=== PATIENT | female | born 2000 | race Two or more races ===

== ENCOUNTER 2025-05-02 21:53 | Observation (INO) | payer MEDICAID, OTHER ==
[~2025-05-02] VITALS: Ht 160 cm; Wt 71.7 kg
[2025-05-02 23:10] LABS: Urine Amorphous Crystal FEW /hpf (None Seen); Urine Protein, UAD Negative (Negative)
[2025-05-02 23:30] LABS: Amphetamine Screen, Urine Neg (NEGATIVE); Barbiturate Scree,Urine Neg (NEGATIVE); Benzodiazephine Screen, Urine Neg (NEGATIVE); Cannabinoid Screen, Urine Neg (NEGATIVE); Cocaine Screen, Urine Neg (NEGATIVE); Opiate Scree,Urine Neg (NEGATIVE); Phencyclidine Screen, Urine Neg (NEGATIVE)
[2025-05-03] MEDS: ACETAMINOPHEN IV 1000 MG/100ML (10MG/ML) IV STA (00:30)
[2025-05-03 01:01] LABS: Vaginal Bacteria Moderate; Vaginal Clue Cells Rare; Vaginal Epithelial Cells Many; Vaginal Trichomonas Not Present
[2025-05-03] MEDS ORDERED: NITR-87 PO (01:35)
[2025-05-03] MEDS ORDERED: PREN1TAB71 PO (01:36)
--- NOTE | 2025-05-03 02:09 | DVHDS2 ---
Physician Discharge Progress N Final Diagnosis: IUP @ 29w 5d Contractions - resolved UTI Operations or Procedures: Operations or Procedures S: 24yo G3,[address] for cramping and back pain. She reports normal movements, no UCs, no leakage of fluid, vaginal bleeding, JONES, vision changes or epigastric pain States she has been in other hospitals twice this month with same problem and was just been told it is normal with O: A&O x3 NAD. Afebrile, VSS Respiration: unlabored heart and lung sounds normal. Abdomen: Gravid, non-tender to palpation Extremities: No edema EFM FHR baseline 135bpm, mod variability, Accelerations present, no deceleration Contractions noted: Patient going to void about every 10min CVA tenderness present bilaterally SSE: white discharge Wet mount: neg except for rare clue cells A: IUP at 29w 4d Contractions UTI symptoms P: IV hydration Acetaminophen 1G IV Rocephin 1G IVPB Re-assessment Patient reports no more cramping or pain A: IUP at 29w 4d Contractions - resolved UTI symptoms P: Discharge home on Macrobid 100mg PO every 12 hrs x 7days Advised to increase water intake, practice good perineal, urinary and voiding hygiene Schedule OB follow appointment with OB provider immediately 3rd trimester emergency S&S FMC, PTL & pre-eclampsia precautions reviewed with pt; advised to seek health care if any symptom including but not limited to any of the above. Condition on Discharge: Good Disposition: Home Discharge Instructions: Diet: Regular Activity: No Restrictions, As Tolerated Medications: none Follow Up Care: Discharge Statement: 3rd trimester emergency S&S FMC, PTL & pre-eclampsia precautions reviewed with pt; advised to seek health care if any symptom including but not limited to any of the above. "Patient was advised to return to the ER or call 911 if any headaches, d izziness, shortness of breath, chest pain, abdominal pain, bleeding, fevers, or worsening of medical condition. Patient was counseled about treatment plan, medications, possible side effects, patientverbalized understanding. All questions were answered to the best of my ability. This discharge took greater then 30 minutes in planning, reviewing documentation, counseling the patient, and discussing with other team members." Visit Coding OBGYN Date of Service: May 03, 2025 Billing Provider: NNEKA BABIN CNM HISTOLOGIC TECHNICIAN Common Visit Codes: 32584-DGS/OBS SAME DATE (HIGH) HISTOLOGIC TECHNICIAN Procedure Codes: 15135-84- NON-STRESS TEST NNEKA BABIN CNM May 03, 2025 02:09
== END 2025-05-03 02:28 | disposition home or self-care (01) ==
LOC: LDRP 21:53
PROVIDERS: ADMIT Obstetrics & Gynecology; ATTEND Obstetrics & Gynecology
DX: O60.03 Preterm labor without delivery, third trimester (principal); O23.43 Unspecified infection of urinary tract in pregnancy, third trimester; N39.0 Urinary tract infection, site not specified; O99.891 Other specified diseases and conditions complicating pregnancy; M54.9 Dorsalgia, unspecified; Z3A.29 29 weeks gestation of pregnancy; Z79.899 Other long term (current) drug therapy; Z98.890 Other specified postprocedural states
CPT/HCPCS: 59025; 80307; 81001; 87210; 94760; 94762; 96360; 96361; G0378; J0696; J7030; J0131

== ENCOUNTER 2025-06-20 11:15 | Observation (INO) | payer MEDICAID ==
[~2025-06-20 11:15] MED LIST: NITR-87 PO; PREN1TAB71 PO
--- NOTE | 2025-06-20 12:42 | DVHDS2 ---
Physician Discharge Progress N Final Diagnosis: cramping 37wks labor check Operations or Procedures: Operations or Procedures nst reactive reviwed Condition on Discharge: Good Disposition: Home Discharge Instructions: Diet: Regular Activity: No Restrictions, As Tolerated Follow Up/Referral: as scheduled Medications: na Follow Up Care: Specialist: 1w Discharge Statement: "Patient was advised to return to the ER or call 911 if any headaches, dizziness, shortness of breath, chest pain, abdominal pain, bleeding, fevers, or worsening of medical condition. Patient was counseled about treatment plan, medications, possible side effects, patientverbalized understanding. All questions were answered to the best of my ability. This discharge took greater then 30 minutes in planning, reviewing documentation, counseling the patient, and discussing with other team members." Visit Coding OBGYN Date of Service: Jun 20, 2025 Billing Provider: RUDY MARCUS DO EYEWEAR MANUFACTURING SUPERVISOR Common Visit Codes: 35953-CMVCFZV OBS CARE (HIGH) EYEWEAR MANUFACTURING SUPERVISOR Procedure Codes: 71408-11- NON-STRESS TEST RUDY MARCUS DO Jun 20, 2025 12:42
== END 2025-06-20 12:48 | disposition home or self-care (01) ==
LOC: UNDOADMOB 11:15 → LDRP 11:15 → UNDODISOB 12:48
PROVIDERS: ADMIT Obstetrics & Gynecology; ATTEND Obstetrics & Gynecology
DX: O26.893 Other specified pregnancy related conditions, third trimester (principal); R25.2 Cramp and spasm; Z3A.37 37 weeks gestation of pregnancy; Z98.890 Other specified postprocedural states
CPT/HCPCS: 59025; 81002; 84112; 87081; 94760; G0378

== ENCOUNTER 2025-06-29 16:22 | Observation (INO) | payer MEDICAID ==
[2025-06-29 17:03] LABS: Hematocrit 30.3 % (36.0-46.0); Hemoglobin 9.5 g/dL (12.2-16.2); Mean Corpuscular Hemoglobin 22.5 pg (28.0-32.0); Mean Corpuscular Volume 71.5 fL (80.0-100.0); Nucleated Red Blood Cells % 0.0 %
[2025-06-29 17:19] LABS: Protein, Urine 56.3 mg/dL (1-14)
[2025-06-29 17:21] LABS: INR 0.96 (0.9-1.15); Partial Thromboplastin Time 26.8 SEC (24.5-34.5); Prothrombin Time 10.2 sec (9.3-11.8)
[2025-06-29 17:23] LABS: Alanine Aminotransferase 11 U/L (7-40); Albumin 3.7 g/dL (3.2-4.8); Anion Gap 10 (5-15); BUN/Creatinine Ratio 12.3 (10.0-20.0); Carbon Dioxide 22 mmol/L (20-31); Potassium 4.0 mmol/L (3.5-5.1); Sodium 141 mmol/L (136-145); Total Protein 6.1 g/dL (5.7-8.2)
[2025-06-29 17:38] LABS: Urine Protein, UAD TRACE (Negative)
[2025-06-29 17:39] LABS: Alkaline Phosphatase 130 U/L (46-116); Bilirubin, Total 0.2 mg/dL (0.2-1.0); Blood Urea Nitrogen 7 mg/dL (9-23); Calcium 8.7 mg/dL (8.7-10.4); Chloride 109 mmol/L (98-107); Glucose 111 mg/dL (74-106)
[2025-06-29 17:51] LABS: Uric Acid 3.3 mg/dL (3.1-7.8)
--- NOTE | 2025-06-29 20:34 | DVHDS2 ---
Physician Discharge Progress N Final Diagnosis: Term , not in labor Secondary Diagnosis: Isolated proteinuria, no evidence of pre-eclampsia Operations or Procedures: Operations or Procedures NST/BPP/ESDRAS PIH labs All reviewed Condition on Discharge: Stable Disposition: Home Discharge Instructions: Diet: Regular Activity: No Restrictions, As Tolerated Follow Up/Referral: F/U w/ Primary OB (Outside MD). Labor precautions. PIH precautions Medications: NA Follow Up Care: Discharge Statement: "Patient was advised to return to the ER or call 911 if any headaches, dizziness, shortness of breath, chest pain, abdominal pain, bleeding, fevers, or worsening of medical condition. Patient was counseled about treatment plan, medications, possible side effects, patientverbalized understanding. All questions were answered to the best of my ability. This discharge took greater then 30 minutes in planning, reviewing documentation, counseling the patient, and discussing with other team members." Visit Coding OBGYN Date of Service: Jun 29, 2025 Billing Provider: ANDREA GOVEA DO CARPENTER ROUGH Common Visit Codes: 03415-RFQ/OBS SAME DATE (HIGH) CARPENTER ROUGH Procedure Codes: 62796-86- NON-STRESS TEST ANDREA GOVEA DO Jun 29, 2025 20:34
== END 2025-06-29 18:47 | disposition home or self-care (01) ==
LOC: LDRP 16:22
PROVIDERS: ADMIT Obstetrics & Gynecology; ATTEND Obstetrics & Gynecology
DX: O12.13 Gestational proteinuria, third trimester (principal); O48.0 Post-term pregnancy; R10.20 Pelvic and perineal pain unspecified side; Z3A.37 37 weeks gestation of pregnancy; Z98.890 Other specified postprocedural states; Z79.899 Other long term (current) drug therapy
CPT/HCPCS: 36415; 59025; 80053; 81001; 81002; 82570; 84156; 84550; 85025; 85610; 85730; 94760; G0378

== ENCOUNTER 2025-07-03 14:55 | Observation (INO) | payer MEDICAID ==
--- NOTE | 2025-07-04 09:47 | DVHDS2 ---
Physician Discharge Progress N Final Diagnosis: labor check 38wks Operations or Procedures: Operations or Procedures nst reactive reviwed,sono Condition on Discharge: Good Disposition: Home Discharge Instructions: Diet: Regular Activity: No Restrictions, As Tolerated Medications: na Follow Up Care: Specialist: 2d Discharge Statement: "Patient was advised to return to the ER or call 911 if any headaches, dizziness, shortness of breath, chest pain, abdominal pain, bleeding, fevers, or worsening of medical condition. Patient was counseled about treatment plan, medications, possible side effects, patientverbalized understanding. All questions were answered to the best of my ability. This discharge took greater then 30 minutes in planning, reviewing do cumentation, counseling the patient, and discussing with other team members." Visit Coding OBGYN Date of Service: Jul 03, 2025 Billing Provider: RUDY MARCUS DO RVDA MASTER CERTIFIED RV TECHNICIAN Common Visit Codes: 49674-CIZNUSY OBS CARE (HIGH) RVDA MASTER CERTIFIED RV TECHNICIAN Procedure Codes: 97719-41- NON-STRESS TEST RUDY MARCUS DO Jul 04, 2025 09:47
== END 2025-07-03 16:20 | disposition home or self-care (01) ==
LOC: INTOOBSV 14:55 → LDRP 14:55
PROVIDERS: ADMIT Obstetrics & Gynecology; ATTEND Obstetrics & Gynecology
DX: O62.9 Abnormality of forces of labor, unspecified (principal); Z3A.38 38 weeks gestation of pregnancy; Z79.899 Other long term (current) drug therapy; Z98.890 Other specified postprocedural states
CPT/HCPCS: 59025; 81002; 94760; G0378

== ENCOUNTER 2025-07-10 09:35 | Emergency (ER) | payer MEDICAID ==
[~2025-07-10] VITALS: Ht 170.2 cm; Wt 82.0 kg
[2025-07-10 10:00] VITALS: PULSE 64; RESP 16; O2SAT 98
[2025-07-10] MEDS: MORPHINE SULFATE 4 MG/ML SYR/VIAL IV ONE (10:15)
[2025-07-10] MEDS: LABETALOL HCL 20 MG/4 ML VL IV ONE (10:15)
--- NOTE | 2025-07-10 10:23 | ED.PDOC ---
HUMAN PERFORMANCE PROFESSOR HPI Comments This is a 24 year old female presenting to the ED with chief complaint of post hypertension. Patient reports that she had delivered her daughter 2 days ago in [facility] where she has now been experiencing a crushing headache worsening over time. Patient relays that she has been noted to have a high BP with a systolic BP in the 150s. Patient states that she had an epidural placed for delivery, however, it needed to be fixed due to malfunctioning. Patient notes she was previously diagnosed with preeclampsia and gestational hypertension. Patient denies any N/V, dizziness, syncope, abdominal pain, chest pain, or SOB. Chief Complaint: High Blood Pressure Time Seen by MD: 10:23 Reviewed Notes: Nurses Notes, Medications, Allergies Allergies: Coded Allergies: NO KNOWN ALLERGIES (Unverified , 05/02/25) Home Meds Reported Medications Vit W/ Ferrous Fumara (PNV PLUS MULTIVI) Plus Tab, 1 TAB PO DAILY, TAB 05/03/25 Nitrofurantoin Monohydrate Mac (Macrobid) 100 Mg Cap, 100 MG PO BID for 7 Days, CAP 05/03/25 Information Source: Patient Mode of Arrival: Ambulatory Timing: Days Prehospital treatment: None Severity: Moderate Past Medical History PAST MEDICAL HISTORY: Denies Surgical History: Denies all surgeries FIXED INCOME MANAGER History: No Pertinent FIXED INCOME MANAGER History Family History Family History: Reviewed,noncontributory to illness Social History Smoker: Non-Smoker Alcohol: Denies ETOH Use Drugs: Denies Drug Use Lives In: Home Constitutional: denies: chills, diaphoresis, fatigue, fever, malaise, sweats, weakness, others EENTM: denies: blurred vision, double vision, ear bleeding, ear discharge, ear drainage, ear pain, ear ringing, eye pain, eye redness, hearing loss, mouth pain, mouth swelling, nasal discharge, nose bleeding, nose congestion, nose pain, photophobia, tearing, throat pain, throat swelling, voice changes, others Respiratory: denies: cough, hemoptysis, orthopnea, SOB at rest, shortness of breath, SOB with excertion, stridor, wheezing, others Cardiovascular: denies: chest pain, dizzy spells, diaphoresis, Dyspnea on exertion, edema, irregular heart beat, left arm pain, lightheadedness, palpitations, PND, syncope, others Gastrointestinal: denies: abdomen distended, abdominal pain, blood streaked bowels, constipated, diarrhea, dysphagia, difficulty swallowing, hematemesis, melena, nausea, poor appetite, poor fluid intake, rectal bleeding, rectal pain, vomiting, others Genitourinary: denies: abnormal vagina bleeding, burning, dyspareunia, dysuria, flank pain, frequency, hematuria, incontinence, pain, , vagina discharge, urgency, others Neurological: reports: headache; denies: dizziness, fainting, left sided numbness, left sided weakness, numbness, paresthesia, pre-existing deficit, right sided numbness, right sided weakness, seizure, speech problems, tingling, tremors, weakness, others Musculoskeletal: denies: back pain, gout, joint pain, joint swelling, muscle pain, muscle stiffness, neck pain, others Integumetry: denies: bruises, change in color, change in hair/nails, dryness, laceration, lesions, lumps, rash, wounds, others Allergic/Immunocompromised: denies: Difficulty Healing, Frequent Infections, Hives, Itching, others Hematologic/Lymphatic: denies: anemia, blood clots, easy bleeding, easy bruising, swollen glands, others Endocrine: denies: excessive hunger, excessive sweating, excessive thirst, excessive urination, flushing, intolerance to cold, intolerance to heat, unexplained weight gain, unexplained weight loss, others Psychiatric: denies: anxiety, bipolar disorder, depression, hopeless, panic disorder, schizophrenia, sleepless, suicidal, others All Other Systems: Reviewed and Negative Physical Exam General Appearance: Moderate Distress, Normal HEENT: Normal ENT Inspection, Pharynx Normal, TMs Normal Neck: Full Range of Motion, Non-Tender, Normal, Normal Inspection Respiratory: Chest Non-Tender, Lungs Clear, No Accessory Muscle Use, No Res piratory Distress, Normal Breath Sounds Cardiovascular: No Edema, No JVD, No Murmur, No Gallop, Normal Peripheral Pulses, Regular Rate/Rhythm Breast Exam: Deferred Gastrointestinal: No Organomegaly, Non Tender, No Pulsatile Mass, Normal Bowel Sounds, Soft Genitalia: Deferred Pelvic: Deferred Rectal: Deferred Extremities: No calf tenderness, Normal capillary refill, Normal inspection, Normal range of motion, Non-tender, No pedal edema Musculoskeletal : Apperance: Normal Neurologic: Alert, sales and service specialist II-XII nml as Tested, No Motor Deficits, Normal Affect, Normal Mood, No Sensory Deficits Cerebellar Function: Normal Reflexes: Normal Skin: Dry, Normal Color, Warm Peripheral Pulses: 3+ Radial (R), 3+ Radial (L) Lymphatic: No Adenopathy Was a procedure done? Was a procedure done?: No Differential Diagnosis (FIXED INCOME MANAGER) Vaginal Bleeding: Hormonal, UTI X-Ray, Labs, Meds, VS Vital Signs Date Time Temp Pulse Resp B/P (MAP) Pulse Ox O2 Delivery O2 Flow Rate FiO2 07/10/25 11:57 97.7 70 18 133/83 (100) 98 97.7 07/10/25 11:45 83 18 133/83 07/10/25 10:00 64 16 98 Room Air* 0 21 07/10/25 10:00 97.7 64 16 126/79 (95) 98 97.7 07/10/25 09:37 97.4 83 18 153/104 18 97.4 Lab Test 07/10/25 11:05 Range/Units Urine Color Colorless Yellow Urine Clarity Clear Clear Urine pH 6.5 5.0-9.0 Urine Specific [place] 1.009 1.001-1.035 Urine Protein Trace H Negative Urine Ketones Negative Negative Urine Blood 3+ H Negative /uL Urine Nitrite Negative Negative Urine Bilirubin Negative Negative Urine Urobilinogen Normal Negative mg/dL Urine Leukocyte Esterase 1+ Negative /uL Urine RBC 504 0 - 4 /hpf Urine Microscopic WBC 23 H 0-5 /HPF Urine Squamous Epithelial Cells Few <5 /hpf Urine Bacteria None seen None Seen /hpf Urine Mucus Few None Seen Urine Glucose Normal Normal mg/dL Current Medications Medications (Trade) Dose Ordered Sig/Daniela Route Start Time Stop Time Status Last Admin Ondansetron HCl (Zofran) 4 mg ONCE ONCE IV 07/10/25 10:15 07/10/25 10:16 DC 07/10/25 11:45 Hydromorphone HCl (Dilaudid Injection) 1 mg ONCE ONCE IV 07/10/25 11:15 07/10/25 11:16 DC 07/10/25 11:45 Patient alert. Came in because of high blood pressure. Vitals stable. Answering questions. CT of the head reviewed does not show any acute changes. Moving all extremities. No leg swelling. No shortness a breath. UA shows UTI. Was given prescription of Keflex antibiotic. She was told to come back if the headache does not resolve possibly for a e pidural patch. Explained to the patient. Was told to follow up with her primary care physician. Was told to come back if there is any problem. [address] [address] Ph: [phone] DIAGNOSTIC IMAGING Diagnostic Imaging Report : [id number] Signed PATIENT: RADHA ABAD ACCT: [id number] UNIT: [id number] : 2000 LOC: ER ROOM / BED: / AGE / SEX: 24 / F ADM STATUS: REG ER SERVICE 1009 ORDERING PHYSICIAN: PERICO OTTO MD PROCEDURE(s): HWOCT - HEAD WITHOUT CONTRAST REASON: headache ORDER NUMBER(s): [id number], ACCESSION NUMBER(s): [id number] EXAM: CT HEAD WITHOUT CONTRAST INDICATION: headache TECHNIQUE: CT of the head without intravenous contrast. Coronal and sagittal reformatted images are submitted. Radiation Dose : 1. Head: CT Dose: CTDI volume is 51.25 mGy. Dose-length product is 820.05 mGy*cm The dose indicators for CT are the volume Computed Tomography (CT) Dose Index (CTDIvol) and the Dose Length Product (DLP), and are measured in units of mGy and mGy-cm, respectively. These indicators are not patient dose, but values generated from the CT scanner acquisition factors. The report includes radiation exposure data for exposures received during this examination. All CT scans at this medical facility are performed using dose modulation techniques as appropriate to a performed exam including the following: Automated exposure control was utilized; adjustment of the MA and/or KV according to patient size; and use of iterative reconstruction technique. COMPARISON: None FINDINGS: There is no evidence of acute intracranial hemorrhage, extra-axial collection, mass effect, midline shift, herniation or hydrocephalus. There is air in the frontal horns of the lateral ventricles. The ventricles, sulci and cisterns are age appropriate. The carrillo-white differentiation is intact. There is mucosal thickening in the sphenoid sinus. No depressed calvarial fracture. The surrounding soft tissues are unremarkable. IMPRESSION: 1. No evidence of acute intracranial abnormality. 2. Air in the frontal horns of the normal caliber lateral ventricles in the absence of any skull fracture. Please correlate with any recent medical intervention such as lumbar puncture or other neurological procedure or trauma. ATED BY: ZOYA SALCEDO MD DICTATED DATE/TIME: 07/10/251103 SIGNED BY: ZOYA SALCEDO MD SIGNED DATE/TIME: 07/10/251103 CC: Images Reviewed?: Images reviewed and evaluated by me Time of 1ST Reevaluation: 11:22 Reevaluation 1ST: Unchanged Patient Education/Counseling: Diagnosis, Treatment Family Education/Counseling: No Family Present Departure 1 Departure Time of Disposition: 10:41 Impression: Primary Impression: Hypertensive urgency Additional Impression: UTI (urinary tract infection) Qualified Codes: N30.01 - Acute cystitis with hematuria Disposition: HOME / SELF CARE / HOMELESS Condition: Good e-Prescriptions Cephalexin (KEFLEX CAPSULE) 250 Mg Cp 500 MG PO QID for 5 Days, #20 BOTTLE Prov: PERICO OTTO MD 07/10/25 Discharged With: Self Critical Care Note Critical Care Time?: Yes (90 min-critical care time only) Stability Stability form required: No Heart Score Heart Score: Heart Score Response (Comments) Value History N/A 0 EKG N/A 0 Age N/A 0 Risk Factors N/A 0 Troponin N/A 0 Total 0 I personally scribed for PERICO OTTO MD ([email or web address]) on 07/10/25 at 10:23. Electronically submitted by Demarcus Montague ([email or web address]). I personally scribed for PERICO OTTO MD ([email or web address]) on 07/10/25 at 11:14. Electronically submitted by Dmearcus Montague ([email or web address]). PERICO OTTO MD Jul 10, 2025 10:23
--- NOTE | 2025-07-10 11:07 | DVH ---
EXAM: CT HEAD WITHOUT CONTRAST INDICATION: headache TECHNIQUE: CT of the head without intravenous contrast. Coronal and sagittal reformatted images are s ubmitted. Radiation Dose : 1. Head: CT Dose: CTDI volume is 51.25 mGy. Dose-length product is 820.05 mGy*cm The dose indicators for CT are the volume Computed Tomography (CT) Dose Index (CTDIvol) and the Dose Length Product (DLP), and are measured in units of mGy and mGy-cm, respectively. These indicators are not patient dose, but values generated from the CT scanner acquisition factors. The report includes radiation exposure data for exposures received during this examination. All CT scans at this medical facility are performed using dose modulation techniques as appropriate to a performed exam including the following: Automated exposure control was utilized; adjustment of the MA and/or KV according to patient size; and use of iterative reconstruction technique. COMPARISON: None FINDINGS: There is no evidence of acute intracranial hemorrhage, extra-axial collection, mass effect, midline s hift, herniation or hydrocephalus. There is air in the frontal horns of the lateral ventricles. The ventricles, sulci and cisterns are age appropriate. The carrillo-white differentiation is intact. There is mucosal thickening in the sphenoid sinus. No depressed calvarial fracture. The surrounding soft tissues are unremarkable. IMPRESSION: 1. No evidence of acute intracranial abnormality. 2. Air in the frontal horns of the normal caliber lateral ventricles in the absence of any skull frac ture. Please correlate with any recent medical intervention such as lumbar puncture or other neurolo gical procedure or trauma.
[2025-07-10] MEDS: HYDROmorphone HCL 2 MG/ML VL/or syr IV ONE (11:45)
[2025-07-10] MEDS: ONDANSETRON HCL 4 MG/2 ML VIAL IV ONE (11:45)
[2025-07-10 12:07] LABS: Urine Protein, UAD TRACE (Negative)
[2025-07-10] MEDS ORDERED: CEPH250C PO (12:58)
[2025-07-10 13:57] VITALS: BP 135/81; PULSE 84; RESP 18; TEMP 97.7; O2SAT 97
== END 2025-07-10 13:58 | disposition home or self-care (01) ==
LOC: ER 09:35
DX: I16.0 Hypertensive urgency (principal); N39.0 Urinary tract infection, site not specified
CPT/HCPCS: 70450; 81001; 96374; 96375; 99285; J1171; J2405

== ENCOUNTER 2025-07-11 07:15 | Inpatient (IN) | payer MEDICAID ==
[~2025-07-11] VITALS: Ht 160 cm; Wt 90.7 kg
[~2025-07-11 07:15] MED LIST changes: +CEPH250C PO
--- NOTE | 2025-07-11 07:38 | ED.PDOC ---
HPI (NEURO) HPI Comments 24-year-old female came to the ER stating that she has been having headache for the past several days. She was seen in this ER for the same symptom yesterday for which she was given pain medication after she felt better discharged. Patient comes back today with a excruciating headache. She did have a CT scan which was done yesterday that did show procedure oriented complication. Denies nausea vomiting. Denies any other symptoms. Chief Complaint: Headache Time Seen by MD: 07:22 Reviewed Notes: Nurses Notes, Medications, Allergies Information Source: Patient Mode of Arrival: Ambulatory Severity: Moderate Headache Severity: Moderate Duration: Since onset Onset: At rest, With light exertion, With heavy exertion Circumstances: Spontaneous Associated Signs and Symptoms: Headache Past Medical History PAST MEDICAL HISTORY: Denies Surgical History: Denies all surgeries REPAIRER KILN CAR History: No Pertinent REPAIRER KILN CAR History 1 Para 1 Family History Family History: Reviewed,noncontributory to illness Social History Smoker: Non-Smoker Alcohol: Denies ETOH Use Drugs: Denies Drug Use Lives In: Home Constitutional: denies: chills, diaphoresis, fatigue, fever, malaise, sweats, weakness, others EENTM: denies: blurred vision, double vision, ear bleeding, ear discharge, ear drainage, ear pain, ear ringing, eye pain, eye redness, hearing loss, mouth pain, mouth swelling, nasal discharge, nose bleeding, nose congestion, nose pain, photophobia, tearing, throat pain, throat swelling, voice changes, others Respiratory: denies: cough, hemoptysis, orthopnea, SOB at rest, shortness of breath, SOB with excertion, stridor, wheezing, others Cardiovascular: denies: chest pain, dizzy spells, diaphoresis, Dyspnea on exertion, edema, irregular heart beat, left arm pain, lightheadedness, palpit ations, PND, syncope, others Gastrointestinal: denies: abdomen distended, abdominal pain, blood streaked b owels, constipated, diarrhea, dysphagia, difficulty swallowing, hematemesis, melena, nausea, poor appetite, poor fluid intake, rectal bleeding, rectal pain, vomiting, others Genitourinary: denies: abnormal vagina bleeding, burning, dyspareunia, dysuria, flank pain, frequency, hematuria, incontinence, pain, , vagina discharge, urgency, others Neurological: reports: headache, others (Photosensitivity ); denies: dizziness, fainting, left sided numbness, left sided weakness, numbness, paresthesia, pre- existing deficit, right sided numbness, right sided weakness, seizure, speech problems, tingling, tremors, weakness Musculoskeletal: denies: back pain, gout, joint pain, joint swelling, muscle pain, muscle stiffness, neck pain, others Integumetry: denies: bruises, change in color, change in hair/nails, dryness, laceration, lesions, lumps, rash, wounds, others Allergic/Immunocompromised: denies: Difficulty Healing, Frequent Infections, Hives, Itching, others Hematologic/Lymphatic: denies: anemia, blood clots, easy bleeding, easy bruising, swollen glands, others Endocrine: denies: excessive hunger, excessive sweating, excessive thirst, excessive urination, flushing, intolerance to cold, intolerance to heat, unexplained weight gain, unexplained weight loss, others Psychiatric: denies: anxiety, bipolar disorder, depression, hopeless, panic disorder, schizophrenia, sleepless, suicidal, others All Other Systems: Reviewed and Negative Physical Exam General Appearance: Moderate Distress HEENT: Normal ENT Inspection, Pharynx Normal, TMs Normal Neck: Full Range of Motion, Non-Tender, Normal, Normal Inspection Respiratory: Chest Non-Tender, Lungs Clear, No Accessory Muscle Use, No Respiratory Distress, Normal Breath Sounds Cardiovascular: No Edema, No JVD, No Murmur, No Gallop, Normal Peripheral Pulses, Regular Rate/Rhythm Breast Exam: Deferred Gastrointestinal: No Organomegaly, Non Tender, No Pulsatile Mass, Normal Bowel Sounds, Soft Genitalia: Deferred Pelvic: Deferred Rectal: Deferred Extremities: No calf tenderness, Normal capillary refill, Normal inspection, Normal range of motion, Non-tender, No pedal edema Musculoskeletal : Apperance: Normal Neurologic: Alert, clay house worker II-XII nml as Tested, No Motor Deficits, Normal Affect, Normal Mood, No Sensory Deficits Cerebellar Function: Normal Reflexes: Normal Skin: Dry, Normal Color, Warm Peripheral Pulses: 3+ Radial (R), 3+ Radial (L) Lymphatic: No Adenopathy Was a procedure done? Was a procedure done?: No Differential Diagnosis (SZ) Seizure: Psychogenic Seizure, Closed Head Injury, CVA/TIA General Weakness: Anemia, Dehydration Headache: Cluster, Migraine X-Ray, Labs, Meds, VS Vital Signs Date Time Temp Pulse Resp B/P (MAP) Pulse Ox O2 Delivery O2 Flow Rate FiO2 07/11/25 07:19 98.6 84 16 150/76 100 98.6 Lab Test 07/11/25 07:43 Range/Units Prothrombin Time Pending Prothrombin Time INR Pending Patient alert. Came in because of headache. Reviewed her previous visit. Vitals stable. She does not need a epidural patch. Radiology consultation. Explained to the patient. Continue monitoring. Time of 1ST Reevaluation: 08:26 Reevaluation 1ST: Unchanged Patient Education/Counseling: Diagnosis, Treatment Family Education/Counseling: Diagnosis, Treatment Departure 1 Departure Time of Disposition: 07:58 Impression: Primary Impression: Severe migraine following anesthesia Disposition: ADMITTED INPATIENT Admit to: Med Surg Condition: Guarded Critical Care Note Critical Care Time?: No Stability Stability form required: No Heart Score Heart Score: Heart Score Response (Comments) Value History N/A 0 EKG N/A 0 Age N/A 0 Risk Factors N/A 0 Troponin N/A 0 Total 0 I personally scribed for PERICO OTTO MD ([email or web address]) on 07/11/25 at 07:38. Electronically submitted by Whit Kohler ([facility]). PERICO OTTO MD Jul 11, 2025 07:38
[2025-07-11 08:13] LABS: INR 0.96 (0.9-1.15); Prothrombin Time 10.2 sec (9.3-11.8)
[2025-07-11 10:30] VITALS: PULSE 72; RESP 13; O2SAT 100
[2025-07-11] MEDS: HYDROmorphone HCL 2 MG/ML VL/or syr IV ONE (10:43)
[2025-07-11] MEDS: ONDANSETRON HCL 4 MG/2 ML VIAL IV ONE (10:46)
--- NOTE | 2025-07-11 12:46 | DVHNC2 ---
Procedure - Called to evaluate patient for suspected post dural puncture headache. Patient is a 24 year old woman who delivered her second child on 07/08/25 at [facility] with a labor epidural. Patient reports the start of a postural headache and neck pain almost immediately upon placement of the epidural needle. Conservative measures such as oral analgesics, caffeine were unhelpful. A CT scan of her head is within normal limits aside from air in the ventricle which is consistent with an inadvertent dural puncture and subsequent injection of air from the loss of resistance syringe. I explained to the patient the mechanism of a post dural puncture headache and how an epidural blood patch alleviates the symptoms of a hole in the dura. We also discussed that the presence of air in the ventricle is a separate cause of headache that the blood patch might not help. The air will need time to dissipate. She agreed to the epidural blood patch and administration of oxygen in the hope that the supplemental oxygen will aid in the dissipation of the ventricular air. Risks, benefits and alternative to EBP were explained to the patient and her sister in law who was at the bedside. All questions were answered. Informed consent for blood patch obtained. Patient assumed a sitting position. Previous injection site noted at L4-5. Sterile prep and drape. L5-S1 space infiltrated with 1% lido. Epidural needle placed with ABBI at 6cm. 18 cc of the patient's blood was obtained in a sterile technique by Georgi Conklin CRNA and passed off to ky. 12cc of blood was slowly injected into the epidural space before the patient reported pressure in her neck and lower back. The needle was removed, a band-aid applied and the patient was assisted into a supine position. She reported improvement of her headache with some stiffness at the blood patch site. I recommended 4 hours of lying flat while receiving oxygen prior to a re-evaluation. Will follow-up. TONIO APNDYA MD Jul 11, 2025 12:46
[2025-07-11] MEDS: ACETAMINOPHEN IV 1000 MG/100ML (10MG/ML) IV ONE (13:11)
[2025-07-11] MEDS: KETOROLAC TROMETH 30 MG/ML 1ML VIAL IV ONE (13:11)
[2025-07-11 13:30] LABS: Hemoglobin 8.8 g/dL (12.2-16.2); Nucleated Red Blood Cells % 0.0 %
[2025-07-11 13:32] LABS: Hematocrit 27.9 % (36.0-46.0); Mean Corpuscular Hemoglobin 22.3 pg (28.0-32.0); Mean Corpuscular Volume 70.5 fL (80.0-100.0)
[2025-07-11 13:43] LABS: Potassium 4.2 mmol/L (3.5-5.1); Sodium 142 mmol/L (136-145)
[2025-07-11 13:44] LABS: Anion Gap 9 (5-15); Carbon Dioxide 22 mmol/L (20-31)
[2025-07-11 13:45] LABS: Calcium 8.2 mg/dL (8.7-10.4); Chloride 111 mmol/L (98-107)
[2025-07-11 13:49] LABS: BUN/Creatinine Ratio 12.1 (10.0-20.0)
[2025-07-11 13:51] LABS: Blood Urea Nitrogen 7 mg/dL (9-23); Glucose 70 mg/dL (74-106)
[2025-07-11] MEDS ORDERED: ONDANSETRON HCL 4 MG/2 ML VIAL IV PRN (14:30)
[2025-07-11] MEDS ORDERED: ACETAMINOPHEN 325 MG TAB PO PRN (14:30)
--- NOTE | 2025-07-11 15:07 | DVHHP2 ---
History of Present Illness Reason for Visit: Headache History of Present Illness Lexis Cooney is a 24-year-old female with past medical history of preeclampsia who presents to the ED with headache that started 2 days ago while she was inpatient at [facility]. She reports that she had given vaginally and was not taking any medications nor was prescribed any medications for blood pressure. Patient reports that her headache pain is 10/10 feels like it is going to "explode" and constant. Patient reports that she has an OB doctor and was prescribed ibuprofen for pain when she was still by another facility. Patient's sister Katina at the bedside. Patient reports that she was discharged with this headache and it has not improved. Patient reports that she received epidural while at [facility]. Patient does report that her and her boyfriend have a cough. Patient denies any recent sick contacts, recent ingestion of spoiled food, recent travels, chest pain, shortness of breath, fever, chills, lightheadedness, weakness, dizziness, abdominal pain, nausea, vomiting, diarrhea, or urinary symptoms. On examination patient has edema in her lower extremities. Reports that her family has a history of stroke. Past Medical History Preeclampsia Past Surgical History: None Family History: Cancer, DM, Hyperlipidemia, Hypertension, Other (Mom with diabetes, hyperlipidemia, COPD, CHF, sepsis, hypertension, and cervical cancer. Dad with diabetes, hypertension, and hyperlipidemia. Grandma with CHF and COPD. Great grandma with CHF and COPD.) Smoke: No ALCOHOL: none Drugs: None Lives: with Family Domestic Violence: Neg Review of Systems Constitutional: Yes: Other (Headache) Allergies: Coded Allergies: NO KNOWN ALLERGIES (Unverified , 05/02/25) Medications Current Medications Medications Dose Ordered Sig/Daniela Route Start Time Stop Time Status Last Admin Dose Admin Ondansetron HCl 4 mg Q4HP PRN IV 07/11/25 14:30 UNV Acetaminophen 650 mg Q6HP PRN PO 07/11/25 14:30 UNV Exam Vital Signs Vital Signs Date Time Temp Pulse Resp B/P (MAP) Pulse Ox O2 Delivery O2 Flow Rate FiO2 07/11/25 12:24 98.4 72 16 134/78 (96) 100 98.4 07/11/25 10:30 Room Air* 0 21 General Appearance: Alert, Oriented X3, Cooperative, No acute distress HEENT: Atraumatic, PERRLA, EOMI, Mucous membr. moist/pink Respiratory: Clear to auscultation, Normal air movement Cardiovascular: Regular rate, Normal S1, Normal S2, No murmurs Abdominal: Normal bowel sounds, Soft Extremities: Normal pulses Skin: No significant lesion Neuro: Normal speech, Strength at 5/5 X4 ext, Normal tone, Sensation intact Psych/Mental Status: Mental status NL, Mood NL Labs/Xrays Labs Test 07/11/25 12:56 07/11/25 07:43 Range/Units White Blood Count 8.6 4.4-10.8 10^3/uL Red Blood Count 3.95 L 4.0-5.20 10^6/uL Hemoglobin 8.8 L 12.2-16.2 g/dL Hematocrit 27.9 L 36.0-46.0 % Mean Corpuscular Volume 70.5 L 80.0-100.0 fL Mean Corpuscular Hemoglobin 22.3 L 28.0-32.0 pg Mean Corpuscular Hemoglobin Concent 31.6 L 32.0-36.0 g/dL Red Cell Distribution Width 17.1 H 11.8-14.3 % Platelet Count 281 140-450 10^3/uL Mean Platelet Volume 8.3 6.9-10.8 fL Neutrophils (%) (Auto) 77.0 37.0-80.0 % Lymphocytes (%) (Auto) 17.6 10.0-50.0 % Monocytes (%) (Auto) 3.0 0.0-12.0 % Eosinophils (%) (Auto) 2.0 0.0-7.0 % Basophils (%) (Auto) 0.4 0.0-2.0 % Neutrophils # (Auto) 6.6 1.6-8.6 10 ^3/uL Lymphocytes # (Auto) 1.5 0.4-5.4 10 ^3/uL Monocytes # (Auto) 0.3 0-1.3 10 ^3/uL Eosinophils # (Auto) 0.2 0-0.8 10 ^3/uL Basophils # (Auto) 0 0-0.2 10 ^3/uL Nucleated Red Blood Cells 0.0 % Erythrocyte Sedimentation Rate 16 0-20 mm/hr Sodium Level 142 136-145 mmol/L Potassium Level 4.2 3.5-5.1 mmol/L Chloride Level 111 H 98-107 mmol/L Carbon Dioxide Level 22 20-31 mmol/L Anion Gap 9 5-15 Blood Urea Nitrogen 7 L 9-23 mg/dL Creatinine 0.58 0.550-1.02 mg/dL Glomerular Filtration Rate Calc 131 >90 mL/min BUN/Creatinine Ratio 12.1 10.0-20.0 Serum Glucose 70 L 74-106 mg/dL Lactic Acid Level 0.7 0.4-2.0 mmol/L Calcium Level 8.2 L 8.7-10.4 mg/dL Lactate Dehydrogenase 253 H 120-246 U/L C-Reactive Protein High Sensitivity 1.63 H <1.0 mg/dL Prothrombin Time 10.2 9.3-11.8 sec Prothrombin Time INR 0.96 0.9-1.15 EXAM: CT HEAD WITHOUT CONTRAST INDICATION: headache TECHNIQUE: CT of the head without intravenous contrast. Coronal and sagittal reformatted images are submitted. Radiation Dose : 1. Head: CT Dose: CTDI volume is 51.25 mGy. Dose-length product is 820.05 mGy*cm The dose indicators for CT are the volume Computed Tomography (CT) Dose Index (CTDIvol) and the Dose Length Product (DLP), and are measured in units of mGy and mGy-cm, respectively. These indicators are not patient dose, but values generated from the CT scanner acquisition factors. The report includes radiation exposure data for exposures received during this examination. All CT scans at this medical facility are performed using dose modulation techniques as appropriate to a performed exam including the following: Automated exposure control was utilized; adjustment of the MA and/or KV according to patient size; and use of iterative reconstruction technique. COMPARISON: None FINDINGS: There is no evidence of acute intracranial hemorrhage, extra-axial collection, mass effect, midline shift, herniation or hydrocephalus. There is air in the frontal horns of the lateral ventricles. The ventricles, sulci and cisterns are age appropriate. The carrillo-white differentiation is intact. There is mucosal thickening in the sphenoid sinus. No depressed calvarial fracture. The surrounding soft tissues are unremarkable. IMPRESSION: 1. No evidence of acute intracranial abnormality. 2. Air in the frontal horns of the normal caliber lateral ventricles in the absence of any skull fracture. Please correlate with any recent medical intervention such as lumbar puncture or other neurological procedure or trauma. SEPSIS Sepsis Screen Date sepsis recognized/suspect: Jul 11, 2025 Time Sepsis recognized/suspect: 722 Recent Procedure: Yes On Antibiotic Therapy: No Respiratory Rate >20: No Heart Rate >90: No Temp<36 C (96.8 F) or >38.3 C: No SBP <90 or MAP <65 mmHG: No New Acute Mental Status Change: No Is the patient on CPAP, BIPAP,: No Physician Orders * Radiologist Consult (07/11/25 07:27) * Anesthesiolgist Consult (07/11/25 08:39) Urinalysis (07/11/25 14:17) Drug Screen (07/11/25 14:17) * Neurology Consult (07/11/25 14:30) Admit (07/11/25 14:30) Allergies (07/11/25 14:30) Code Status (07/11/25 14:30) Ondansetron Hcl (Zofran) (07/11/25 14:30) Complete Blood Count (07/12/25 04:00) Comprehensive Metabolic Panel (07/12/25 04:00) Cardiac Diet-2gna,Lofat,Lochol (07/11/25 Dinner) Acetaminophen Tablet (Tylenol Tablet) (07/11/25 14:30) Sequential Compression Device (07/11/25 ) Vital Signs Date Time Temp Pulse Resp B/P (MAP) Pulse Ox O2 Delivery O2 Flow Rate FiO2 07/11/25 12:24 98.4 72 16 134/78 (96) 100 98.4 07/11/25 11:13 84 18 134/78 07/11/25 10:43 72 13 130/76 07/11/25 10:30 72 13 100 Room Air* 0 21 07/11/25 10:30 98.4 72 13 130/76 (94) 100 98.4 07/11/25 09:28 75 20 138/62 (87) 99 07/11/25 07:19 98.6 84 16 150/76 100 98.6 Laboratory Tests Test 07/11/25 12:56 Lactic Acid Level 0.7 mmol/L (0.4-2.0) White Blood Count 8.6 10^3/uL (4.4-10.8) Medications Medications Dose Ordered Sig/Daniela Route Start Time Stop Time Status Last Admin Dose Admin Acetaminophen 1,000 mg ONCE ONCE IV 07/11/25 13:00 07/11/25 13:01 DC 07/11/25 13:11 1,000 MG Hydromorphone HCl 1 mg ONCE ONCE IV 07/11/25 09:15 07/11/25 09:16 DC 07/11/25 10:43 1 MG Ketorolac Tromethamine 30 mg ONCE ONCE IV 07/11/25 13:00 07/11/25 13:01 DC 07/11/25 13:11 30 MG Ondansetron HCl 4 mg ONCE ONCE IV 07/11/25 09:15 07/11/25 09:16 DC 07/11/25 10:46 4 MG Assessment/Plan Assessment/Plan Assessment Intractable headache unrelieved with p.o. meds Air in the frontal horns of the normal caliber lateral ventricles 2 days , had an epidural when she was inpatient at [facility], given vaginally Microcytic anemia Obesity History of preeclampsia Plan Admit to med surge Antiemetics Pain management IV pain meds Blood patch was done in ED by anesthesia Keep patient lying flat until symptoms resolve or are better CT head noted Bilateral lower extremity ultrasound Diet Per patient no home medications DVT prophylaxis-SCDs PUD prophylaxis-not indicated no history of GERD or GI bleed Discussed plan of care with patient, patient's sister, and nurse Neurology consulted Counseled patient on lifestyle modifications, diet, and exercise [id number] Preventive counseling healthy eating habits, physical activity, and regular checkups Plan discussed with: Patient, Other (sister ) My Orders Orders - KASHMIR ARNOLD [employer] Procedure Category Date Status Time Urinalysis LAB 07/11/25 Logged 14:17 Drug Screen LAB 07/11/25 Logged 14:17 * Neurology Consult CONS 07/11/25 Transmitted 14:30 Admit ADMIT 07/11/25 Transmitted 14:30 Allergies TIMUR 07/11/25 In Process 14:30 Code Status CODE 07/11/25 Transmitted 14:30 Ondansetron Hcl PHA 07/11/25 Logged (Zofran) 14:30 Complete Blood Count LAB 07/12/25 Verified 04:00 Comprehensive LAB 07/12/25 Verified Metabolic Panel 04:00 Cardiac DIET 07/11/25 Transmitted Diet-2gna,Lofat,Lochol Dinner Acetaminophen Tablet PHA 07/11/25 Logged (Tylenol Tablet) 14:30 Sequential TIMUR 07/11/25 In Process Compression Device Date of Service: Jul 11, 2025 Billing Provider: KASHMIR ARNOLD Common Visit Codes: 84751-YXBVZET INP/OBS CARE (HIGH) Secondary Visit Codes: 66088-[id number] COUNSELING IND KASHMIR ARNOLD Jul 11, 2025 15:07
--- NOTE | 2025-07-11 15:46 | DVH ---
CLINICAL HISTORY: swelling TECHNIQUE: Color and duplex doppler imagine of the bilateral lower extremity veins was performed. Ves mila compression and augmentation if possible was also performed. COMPARISON: None FINDINGS: Right Lower Extremity: Right common femoral vein: Normal compressibility and flow. Right superficial femoral vein: Normal compressibility and flow. Right popliteal vein: Normal compressibility and flow. Left Lower Extremity: Left common femoral vein: Normal compressibility and flow. Left superficial femoral vein: Normal compressibility and flow. Left popliteal vein: Normal compressibility and flow. IMPRESSION: NO SONOGRAPHIC EVIDENCE FOR DEEP VENOUS THROMBOSIS IN THE BILATERAL LOWER EXTREMITY VEINS.
[2025-07-11 17:17] VITALS: BP 135/87; PULSE 78; RESP 18; TEMP 98.8; O2SAT 99
[2025-07-11 17:30] VITALS: BP 135/87; PULSE 78; RESP 16; RESP 18; TEMP 98.8; O2SAT 99
[2025-07-11 18:42] LABS: Urine Protein, UAD Negative (Negative)
[2025-07-11 18:51] LABS: Amphetamine Screen, Urine Neg (NEGATIVE); Barbiturate Scree,Urine Neg (NEGATIVE); Benzodiazephine Screen, Urine Neg (NEGATIVE); Cannabinoid Screen, Urine Neg (NEGATIVE); Cocaine Screen, Urine Neg (NEGATIVE); Opiate Scree,Urine Neg (NEGATIVE); Phencyclidine Screen, Urine Neg (NEGATIVE)
[2025-07-11 20:00] VITALS: PULSE 76; RESP 16; O2SAT 98
[2025-07-11 21:00] VITALS: BP 129/81; PULSE 76; RESP 18; TEMP 97.3; O2SAT 98
[2025-07-12 01:00] VITALS: BP 142/89; PULSE 79; RESP 20; TEMP 97.3; O2SAT 100
[2025-07-12 04:40] VITALS: BP 134/97; PULSE 69; RESP 19; TEMP 97.4; O2SAT 97
[2025-07-12 07:58] LABS: Hematocrit 29.3 % (36.0-46.0); Hemoglobin 9.3 g/dL (12.2-16.2); Mean Corpuscular Hemoglobin 22.2 pg (28.0-32.0); Mean Corpuscular Volume 69.8 fL (80.0-100.0); Nucleated Red Blood Cells % 0.0 %
[2025-07-12 08:28] LABS: Alanine Aminotransferase 29 U/L (7-40); Albumin 3.4 g/dL (3.2-4.8); Alkaline Phosphatase 101 U/L (46-116); Anion Gap 10 (5-15); BUN/Creatinine Ratio 21.9 (10.0-20.0); Blood Urea Nitrogen 14 mg/dL (9-23); Carbon Dioxide 23 mmol/L (20-31); Potassium 4.3 mmol/L (3.5-5.1); Sodium 141 mmol/L (136-145)
[2025-07-12 08:29] LABS: Bilirubin, Total 0.4 mg/dL (0.2-1.0); Calcium 8.1 mg/dL (8.7-10.4); Chloride 108 mmol/L (98-107); Glucose 68 mg/dL (74-106); Total Protein 5.5 g/dL (5.7-8.2)
[2025-07-12 08:58] VITALS: BP 126/92; PULSE 76; RESP 17; TEMP 98.6; O2SAT 99
== END 2025-07-12 10:30 | disposition left against medical advice (07) | DRG 561 ==
LOC: ER 07:15 → OVERFLOW 14:30 → EAST 17:27
PROC: 3E0R3GC Introduction of Other Therapeutic Substance into Spinal Canal, Percutaneous Approach (ICD-10-PCS; principal; 2025-07-11)
DX: O89.4 Spinal and epidural anesthesia-induced headache during the puerperium (principal); D50.9 Iron deficiency anemia, unspecified; O90.81 Anemia of the puerperium; O99.215 Obesity complicating the puerperium
CPT/HCPCS: 36415; 80048; 80053; 80307; 81001; 83605; 83615; 85025; 85610; 85652; 86141; 93970; 96374; 96375; G0378; J0131; J1885; J2405